=== PATIENT | female | born 1960 | race Caucasian/White ===

== ENCOUNTER → 2020-06-16 | Outpatient (CLI) | payer OTHER | LOC: COL.RAD 07:34 | DX: M25.552 Pain in left hip (principal); M25.551 Pain in right hip | CPT/HCPCS: J3301; Q9967 ==

== ENCOUNTER → 2020-09-28 | Outpatient (CLI) | payer OTHER | LOC: COL.RAD 07:30 | DX: M25.551 Pain in right hip (principal); M25.552 Pain in left hip | CPT/HCPCS: J3301; Q9967 ==